=== PATIENT | male | born 1975 | race Caucasian/White ===

== ENCOUNTER → 2017-01-22 17:29 | Emergency (ER) | payer BC ==
[~2017-01-22 17:29] MED LIST: Cephalexin CAP* 500 MG PO ONE; Ibuprofen TAB* 600 MG PO ONE; Sulfamethox/Trimethoprim DS 800/160* TAB PO ONE
--- NOTE | 2017-01-22 20:22 | ED ---
Skin Complaint - HPI Summary HPI Summary: 41 male presents with complaints of an abscess on the back of his left thigh that began 2 days ago. Patient and state he gets "pimples" that need to be popped often and sometimes get infected. states she popped and drained it yesterday and yellow pus came out. Since then the area has become very red and painful to touch without discharge or bleeding. Patient has not taken any medications. He admits to being immuno-compromised since he just finished chemo for his colon cancer ~8 months ago. Admits to feeling feverish however denies fever when taking his temp. Also states he has felt "under the weather" since yesterday. Denies any recent bug bites or skin complaints. Denies pruritis. No other pain or injuries elsewhere. PMHx significant or colon cancer and anemia. No history of MRSA. No loss of ROM. 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: - "popping" draining it Associated Signs & Symptoms: Rash - redness, Drainage, Red Streaks - Additional Pertinent History Primary Care Physician: NISSA - Allergy/Home Medications Allergies/Adverse Reactions: Allergies Allergy/AdvReac Type Severity Reaction Status Date / Time No Known Allergies Allergy Verified 12/05/15 09:19 PMH/Surg Hx/FS Hx/Imm Hx Endocrine/Hematology History: Reports: Hx Anemia - HX OF Denies: Hx Diabetes GI History: Reports: Hx Hiatal Hernia - x2 Sensory History: Denies: Hx Contacts or Glasses, Hx Hearing Aid Opthamlomology History: Denies: Hx Contacts or Glasses Neurological History: Reports: Hx Headaches - Cancer History Cancer Type, Location and Year: colon cancer- in remission ~ 8 months Hx Chemotherapy: Yes - finished 8 months ago - Surgical History Surgery Procedure, Year, and Place: 2 hernia repairs Hx Anesthesia Reactions: No - Immunization History Immunizations Up to Date: Yes Infectious Disease History: No Infectious Disease History: Denies: History Other Infectious Disease, Traveled Outside the [place] in Last 30 Days - Family History Known Family History: Positive: None - Social History Alcohol Use: None Substance Use Type: Reports: None Substance Use Comment - Amount & Last Used: LAST USE 1 MO AGO Smoking Status (MU): Heavy Every Day Tobacco Smoker Type: Cigarettes Amount Used/How Often: 10 cig./day Length of Time of Smoking/Using Tobacco: Since he was 16 years old Have You Smoked in the Last Year: Yes Review of Systems Positive: Fever - feels feverish Cardiovascular: Negative Respiratory: Negative Musculoskeletal: Negative Positive: Rash All Other Systems Reviewed And Are Negative: Yes Physical Exam Triage Information Reviewed: Yes Vital Signs On Initial Exam: Initial Vitals Temp Pulse Resp BP Pulse Ox 98.6 F 121 20 120/61 96 01/22/17 17:35 01/22/17 17:35 01/22/17 17:35 01/22/17 17:35 01/22/17 17:35 tachycardia noed Vital Signs Reviewed: Yes Appearance: Positive: Well-Appearing, Well-Nourished, Pain Distress - moderate when touching abscessed area Skin: Positive: Warm, Skin Color Reflects Adequate Perfusion, Dry, Erythema @ - on posterior mid left thigh- appeared to have been an abscess however at this time no palpable abscess sac. Area around center is firm but non-fluctuant and about the size of a thu. surrounding cellulitis approximatel 4.5cm in daimete with some minor red streaking from surrounding cellulitis to inner thigh. No discharge or bleeding. Indurated. No FB. No longer drainable. Warm to touch. Rest of skin exam normal.. Negative: Cold, Numb, Soft, Cyanosis @ Head/Face: Positive: Normal Head/Face Inspection ENT: Positive: Normal ENT inspection, Hearing grossly normal Neck: Positive: Supple, Nontender, No Lymphadenopathy Respiratory/Lung Sounds: Positive: Clear to Auscultation, Breath Sounds Present. Negative: Rales, Rhonchi, Wheezes Cardiovascular: Positive: Normal, RRR, Pulses are Symmetrical in both Upper and Lower Extremities. Negative: Murmur, Rub Abdomen Description: Positive: Nontender Bowel Sounds: Positive: Present Musculoskeletal: Positive: Normal, Strength/ROM Intact, Pain @ - posterior thigh - superficial skin on palpation due to abscess/cellulitis. Negative: Limited @ , Interruption @ Neurological: Positive: Normal, Sensory/Motor Intact, Alert, Oriented to Person Place, Time, CN Intact II-III, Reflexes Intact, NV Bundle Intact Distally, Normal Gait Psychiatric: Positive: Affect/Mood Appropriate AVPU Assessment: Alert Diagnostics - Vital Signs Vital Signs Temp Pulse Resp BP Pulse Ox 01/22/17 17:37 98.6 F 117 20 120/71 97 01/22/17 17:35 98.6 F 121 20 120/61 96 - Laboratory Result Diagrams: 01/22/17 19:25 01/22/17 19:25 Lab Statement: Any lab studies that have been ordered have been reviewed, and results considered in the medical decision making process. Re-Evaluation - Re-Evaluation First Eval Re-Evaluation Time: 20:15 Change: Unchanged - patient was still comfortable, sleeping no changes, aware that we are waiting for lab results Course/Dx - Course Course Of Treatment: CBC and CMP and lactic ordered to rule out sepsis due to patient being immunocompromised and rapid progression of cellulitis with red streaks. Labs were in normal range. Due to PE findings and patient already draining abscess, no further draining or I&D appeared necessary at this time. Non-fluctuant and very firm without a palpable abscess sac. No drainage to obtain wound culture. No fever or WBC, no concern for sepsis. Given ibuprofen for pain and inflammation. Keflex and Bactrim and follow up. Fluids, keep clean and dry. Aware of worsening signs and symptoms to watch out for and to return if occur, immediately. If oral antibotics show no improvement or symptoms worsening in 48 hours to return promptly. - Differential Diagnoses - Skin Complaint Differential Diagnoses: Abscess, Cellulitis, Contact Dermatitis, Local Allergic Reaction, Tinea, Urticaria, Varicella Zoster, Other - Diagnoses Provider Diagnoses: Cellulitis and abscess of leg Discharge - Discharge Plan Condition: Stable Disposition: HOME Prescriptions: Cephalexin CAP* [Keflex CAP*] 500 mg PO TID #29 cap Sulfamethox/Trimethoprim DS* [Bactrim DS 800/160 TAB*] 1 tab PO BID #19 tab Patient Education Materials: Cellulitis (ED), Abscess (ED) Referrals: No Primary Care Phys,NOPCP [Primary Care Provider] - [facility] – [place] PHYSICIAN REFERRAL [Outside] Additional Instructions: Take antibiotics as directed. Do not skip a dose and continue taking even if symptoms improve, until entire dose is finished. Give mediation ~24-48 hours to work or show improvement. Drink plenty of fluids. Keep clean and dry. Apply warm compresses to area. Follow up with PCP within the next 3-5 days or follow up in ED to re-check. Return sooner if worsening, more red streaking, no improvement or new symptoms such as fever develop.
[2017-01-22 20:39] LABS: Hematocrit 43 % (42-52); Hemoglobin 14.9 g/dl (14.0-18.0); Mean Corpuscular HGB Conc 35 g/dl (31-36); Mean Corpuscular Hemoglobin 33 pg (27-31); Mean Corpuscular Volume 93 fL (80-94); Mean Platelet Volume 8 um3 (7.4-10.4); Red Blood Count 4.58 10^6/ul (4.0-5.4); Red Cell Distribution Width 13 % (10.5-15); White Blood Count 5.9 10^3/ul (3.5-10.8)
[2017-01-22 20:52] LABS: BUN/Creatinine Ratio 10.3 (8-20); Calcium 9.8 mg/dL (8.6-10.3); EGFR African American 89.2 (>60); EGFR Non-African American 69.4 (>60); Globulin 3.1 g/dL (2-4); Potassium 3.9 mmol/L (3.5-5.0); Total Bilirubin 0.5 mg/dL (0.2-1.0); Total Protein 7.1 g/dL (6.4-8.9)
[2017-01-22 21:17] VITALS: BP 119/62
== END | disposition home or self-care (01) ==
LOC: ED 17:29
DX: L03.116 Cellulitis of left lower limb (principal); L02.212 Cutaneous abscess of back [any part, except buttock and flank]; F17.210 Nicotine dependence, cigarettes, uncomplicated
CPT/HCPCS: 36415; 80053; 85025; 99282; A9270-GY

== ENCOUNTER 2017-03-23 09:40 | Emergency (ER) | payer BC ==
[2017-03-23 09:47] VITALS: BP 141/80
--- NOTE | 2017-03-23 10:16 | RAD ---
HISTORY: Left knee swelling COMPARISONS: None VIEWS: 4, Frontal, lateral, axial, and oblique views of the left knee FINDINGS: BONE DENSITY: Normal. BONES: There is no displaced fracture. JOINTS: There is no arthropathy. There is no suprapatellar joint effusion or lipohemarthrosis. ALIGNMENT: There is no dislocation. SOFT TISSUES: There is mild prepatellar soft tissue swelling OTHER FINDINGS: None. IMPRESSION: SOFT TISSUE SWELLING. NO ACUTE OSSEOUS INJURY. IF SYMPTOMS PERSIST, RECOMMEND REPEAT IMAGING.
--- NOTE | 2017-03-23 11:14 | RAD ---
INDICATION: Left hip pain, "had infected abscess" COMPARISON: CT abdomen pelvis November 05, 2015 TECHNIQUE: 4 views of the left hip were obtained. FINDINGS: The visualized bones of the left hip are well-corticated and properly aligned. The joint spaces are normal. There is no radiographic evidence of acute fracture or dislocation. IMPRESSION: Normal radiograph of the left hip. If the patient's symptoms persist follow-up imaging is recommended.
--- NOTE | 2017-03-23 11:33 | RAD ---
HISTORY: Left leg swelling COMPARISONS: None relevant TECHNIQUE: Multiple transverse and longitudinal ultrasound images were obtained of the left lower extremity from the level of the common femoral vein inferiorly through to the infrapopliteal veins using grayscale, color Doppler, and spectral Doppler imaging with and without compression and with augmentation. Comparison images were obtained of the contralateral common femoral vein. FINDINGS: VEINS: The venous system of the left lower extremity is compressible throughout its course, with normal flow on color Doppler imaging and normal response to augmentation on spectral Doppler imaging. SOFT TISSUES: Unremarkable. OTHER FINDINGS: None. IMPRESSION: NO LEFT LOWER EXTREMITY DEEP VEIN THROMBOSIS
--- NOTE | 2017-03-23 12:17 | UC ---
Coy Chan Alfonso, scribed for Serjio Shepard MD on 03/23/17 at 1044 . Lower Extremity/Ankle HPI - HPI Summary HPI Summary: This patient is a 41 year old M presenting to [facility] with a chief complaint of left knee pain worse since two days ago. The CC is described as swelling and aching. The patient rates the pain 10/10 in severity. Symptoms aggravated by ambulation. Symptoms alleviated by nothing. Patient reports left hip pain. Patient denies fever, chills, CP, SOB, and back pain. He was seen at [facility] two months ago for cellulitis and abscess of the left leg. He works in [employer]. He denies taking blood thinning medication. He denies known trauma. He denies known tick bites but he is outdoors often. PMHx of colon cancer for which he completed chemotherapy approximately 9 months ago, and peripheral neuropathy in both feet. Patients medications reviewed this visit. - History of Current Complaint Chief Complaint: UCLowerExtremity Stated Complaint: LEG PAIN Time Seen by Provider: 03/23/17 10:19 Hx Obtained From: Patient Onset/Duration: Sudden Onset, Lasting Weeks - Intermittent since 2 months ago cellulitis and abscess, Worse Since - 2 days Severity Initially: Severe Severity Currently: Severe Pain Intensity: 10 Pain Scale Used: 0-10 Numeric Aggravating Factor(s): Ambulation Alleviating Factor(s): Nothing Able to Bear Weight: Yes - Allergies/Home Medications Allergies/Adverse Reactions: Allergies Allergy/AdvReac Type Severity Reaction Status Date / Time No Known Allergies Allergy Verified 03/23/17 09:47 Home Medications: Home Medications Gabapentin CAP(*) [Neurontin 300 CAP(*)] 300 mg PO BID 03/23/17 [History Confirmed 03/23/17] PMH/Surg Hx/FS Hx/Imm Hx Previously Healthy: No Other Neurological History: peripheral neuropathy in both feet Cancer History: Colorectal Cancer - Surgical History Surgical History: Yes Surgery Procedure, Year, and Place: 2 hernia repairs - Family History Known Family History: Positive: Diabetes, Other - Cancer Negative: Cardiac Disease - Social History Alcohol Use: None Substance Use Type: None Substance Use Comment - Amount & Last Used: LAST USE 1 MO AGO Smoking Status (MU): Former Smoker Type: Cigarettes Amount Used/How Often: 10 cig./day Length of Time of Smoking/Using Tobacco: Since he was 16 years old Have You Smoked in the Last Year: Yes When Did the Patient Quit Smoking/Using Tobacco: 11/05/2015 Household Exposure Type: Cigarettes - Immunization History Most Recent Influenza Vaccination: NEVER Most Recent Tetanus Shot: 2 years ago Most Recent Pneumonia Vaccination: never Review of Systems Constitutional: Negative Respiratory: Other - Negative SOB Cardiovascular: Other - Negative CP Musculoskeletal: Other: - Left knee and left hip pain; negative back pain. All Other Systems Reviewed And Are Negative: Yes Physical Exam Triage Information Reviewed: Yes Vital Signs: Initial Vital Signs Temp 98.6 F 03/23/17 09:42 Pulse 86 03/23/17 09:42 Resp 16 03/23/17 09:42 BP 141/80 03/23/17 09:42 Pulse Ox 97 03/23/17 09:42 Vital Signs Reviewed: Yes - Additional Comments The patient is well-nourished in no acute distress and in no acute pain. The skin is warm and dry and skin color reflects adequate perfusion. HEENT: The head is normocephalic and atraumatic. The pupils are equal and reactive. The conjunctivae are clear and without drainage. Nares are patent and without drainage. Mouth reveals moist mucous membranes and the throat is without erythema and exudate. The external ears are intact. The ear canals are patent and without drainage. The tympanic membranes are intact. Neck is supple with full range of motion and non-tender. There are no carotid bruits. There is no neck vein distension. Respiratory: Chest is non-tender. Lungs are clear to auscultation and breath sounds are symmetrical and equal. Cardiovascular: Heart is regular rate and rhythm. There is no murmur or rub auscultated. Pulses are symmetrical and equal. Abdomen: The abdomen is soft and non-tender. Musculoskeletal: There is no back pain noted. There is good capillary refill. There is no peripheral edema or calf tenderness elicited. Swelling of left knee and ankle. Good distal pulses at LLE. Decreased LLE knee flection to 45 degrees. LLE knee has full extension. Lateral aspect of left knee tender. Left knee warm but not hot. Questionable patellar ballottement. Reproducible left hip pain. Left hip has slight edema compared to right. Neurological: Patient is alert and oriented to person, place and time. The patient has symmetrical motor strength in all four extremities. Cranial nerves are grossly intact. Psychiatric: The patient has an appropriate affect. Diagnostics - Laboratory Diagnostic Studies Completed/Ordered: Knee X-Ray reveals, per radiologist, SOFT TISSUE SWELLING. NO ACUTE OSSEOUS INJURY. IF SYMPTOMS PERSIST, RECOMMEND REPEAT IMAGING. [facility] physician has reviewed this radiology report and agrees. Hip/ Pelvis X-Ray reveals, per radiologist, Normal radiograph of the left hip. If the patient's symptoms persist follow-up imaging is recommended. [facility] physician has reviewed this radiology report and agrees. Venous Doppler Study reveals, per radiologist, NO LEFT LOWER EXTREMITY DEEP VEIN THROMBOSIS. [facility] physician has reviewed this radiology report and agrees. Lower Extremity Course/Dx - Course Course Of Treatment: This patient is a 41 year old M presenting to [facility] with a chief complaint of left knee pain worse since two days ago. The CC is described as swelling and aching. The patient rates the pain 10/10 in severity. Symptoms aggravated by ambulation. Symptoms alleviated by nothing. Patient reports left hip pain. Patient denies fever, chills, CP, SOB, and back pain. He was seen at [facility] two months ago for cellulitis and abscess of the left leg. He works in [employer]. He denies taking blood thinning medication. He denies known trauma. He denies known tick bites but he is outdoors often. PMHx of colon cancer for which he completed chemotherapy approximately 9 months ago, and peripheral neuropathy in both feet. Patients medications reviewed this visit. Knee X-Ray reveals, per radiologist, SOFT TISSUE SWELLING. NO ACUTE OSSEOUS INJURY. IF SYMPTOMS PERSIST, RECOMMEND REPEAT IMAGING. [facility] physician has reviewed this radiology report and agrees. Hip/Pelvis X-Ray reveals, per radiologist, Normal radiograph of the left hip. If the patient's symptoms persist follow-up imaging is recommended. [facility] physician has reviewed this radiology report and agrees. Venous Doppler Study reveals, per radiologist, NO LEFT LOWER EXTREMITY DEEP VEIN THROMBOSIS. [facility] physician has reviewed this radiology report and agrees. Pt instructed to FOLLOW UP WITH PRIMARY CARE PROVIDER IN TWO WEEKS FOR HIGH BLOOD PRESSURE NOTED TODAY AT 141/80. Patient will be discharged with follow up from PCP and Orthopedics. The patient is agreeable with this plan. - Differential Dx/Diagnosis Differential Diagnosis/HQI/PQRI: Arthritis, DVT, Fracture (Closed), Other - internal derrangement left knee, patella bursitis Provider Diagnoses: Left leg pain. Discharge - Discharge Plan Condition: Stable Disposition: HOME Patient Education Materials: Leg Pain (ED) Forms: *Work Release Referrals: Keenan Gilliam MD [Medical Doctor] - 1 Week [facility] – [place] PHYSICIAN REFERRAL [Outside] - 1 Week Additional Instructions: FOLLOW UP WITH YOUR PRIMARY CARE PROVIDER IN TWO WEEKS FOR HIGH BLOOD PRESSURE NOTED TODAY AT 141/80. THIS DOES NOT MEAN YOU HAVE HYPERTENSION. The documentation as recorded by the Coy petit Alfonso accurately reflects the service I personally performed and the decisions made by me, Serjio Shepard MD.
== END 2017-03-23 11:50 | disposition home or self-care (01) ==
LOC: UCEAST 09:40
DX: M25.562 Pain in left knee (principal); M25.552 Pain in left hip; R60.0 Localized edema; G62.9 Polyneuropathy, unspecified; Z85.038 Personal history of other malignant neoplasm of large intestine; Z87.891 Personal history of nicotine dependence
CPT/HCPCS: 99212; G0463

== ENCOUNTER 2017-03-23 13:00 | Emergency (ER) | payer BC ==
[2017-03-23 15:12] VITALS: BP 129/69
--- NOTE | 2017-03-23 16:49 | ED ---
Lower Extremity - HPI Summary HPI Summary: Patient presents to the ED with CC of left lower leg pain which is worse in the knee. He was seen at and had an US, xray of the leg including the hip. He was encouraged to follow up at his PCP office after provider did not find anything on images or PE. He is here for a second opinion. Pain has been present for about 1 month, but has worsened over this week with pain and fluid around the knee. He has been taking 800mg ibuprofen without relief. He notes to swelling in the knee, but denies warmth or erythema. He endorses abscess on the ipsilateral leg x1 month ago, placed on abx and had good effect with essential clearing of the abscess. He notes to "pain all throughout the leg" since that time. Denies history of gout, rashes, known tick bite, ORTIZ, neuro symptoms or weakness. - History of Current Complaint Chief Complaint: EDExtremityLower Stated Complaint: LT LEG PAIN Time Seen by Provider: 03/23/17 14:08 Hx Obtained From: Patient Mechanism Of Injury: Unknown Onset of Pain: Days Onset/Duration: Weeks Severity Initially: Moderate Severity Currently: Moderate Pain Intensity: 10 Pain Scale Used: 0-10 Numeric Timing: Constant Location: Is Discrete @ - left knee and radiates throughout the entire left leg Associated Signs And Symptoms: Positive: Swelling, Weakness, Knee Pain. Negative: Redness, Bruising, Fever, Abdominal Pain Aggravating Factor(s): Standing, Ambulation, Movement Alleviating Factor(s): Rest, Elevation Able to Bear Weight: Yes - Risk Factors Gout Risk Factors: Age Over 40, Male DVT Risk Factors: Negative Septic Arthritis Risk Factor: Negative - Allergies/Home Medications Allergies/Adverse Reactions: Allergies Allergy/AdvReac Type Severity Reaction Status Date / Time No Known Allergies Allergy Verified 03/23/17 09:47 PMH/Surg Hx/FS Hx/Imm Hx Previously Healthy: Yes Endocrine/Hematology History: Reports: Hx Anemia - HX OF Denies: Hx Diabetes GI History: Reports: Hx Hiatal Hernia - x2 Sensory History: Denies: Hx Contacts or Glasses, Hx Hearing Aid Opthamlomology History: Denies: Hx Contacts or Glasses Neurological History: Reports: Hx Headaches - Cancer History Cancer Type, Location and Year: colon cancer- in remission ~ 8 months Hx Chemotherapy: Yes - finished 8 months ago - Surgical History Surgery Procedure, Year, and Place: 2 hernia repairs Hx Anesthesia Reactions: No - Immunization History Hx Pertussis Vaccination: No Immunizations Up to Date: Unable to Obtain/Confirm Infectious Disease History: No Infectious Disease History: Denies: History Other Infectious Disease, Traveled Outside the [place] in Last 30 Days - Family History Known Family History: Positive: None, Diabetes, Other - Cancer Negative: Cardiac Disease - Social History Occupation: Employed Full-time Lives: With Family Alcohol Use: None Hx Substance Use: No Substance Use Type: Reports: None Substance Use Comment - Amount & Last Used: LAST USE 1 MO AGO Hx Tobacco Use: Yes Smoking Status (MU): Former Smoker Type: Cigarettes Amount Used/How Often: 10 cig./day Length of Time of Smoking/Using Tobacco: Since he was 16 years old Have You Smoked in the Last Year: Yes Review of Systems Constitutional: Negative Negative: Fever, Chills, Fatigue Eyes: Negative Cardiovascular: Negative Respiratory: Negative Genitourinary: Negative Positive: no symptoms reported, see HPI Positive: Arthralgia - knee pain , Other - knee effusion Skin: Negative Neurological: Negative All Other Systems Reviewed And Are Negative: Yes Physical Exam Triage Information Reviewed: Yes Vital Signs On Initial Exam: Initial Vitals Temp Pulse Resp BP Pulse Ox 98.9 F 91 18 134/71 96 03/23/17 13:37 03/23/17 13:37 03/23/17 13:37 03/23/17 13:37 03/23/17 13:37 Vital Signs Reviewed: Yes Appearance: Positive: Well-Appearing, Well-Nourished Skin: Positive: Warm, Skin Color Reflects Adequate Perfusion Head/Face: Positive: Normal Head/Face Inspection Eyes: Positive: EOMI, VASU, Conjunctiva Clear Neck: Positive: Supple, Nontender, No Lymphadenopathy Respiratory/Lung Sounds: Positive: Clear to Auscultation, Breath Sounds Present Cardiovascular: Positive: Normal, RRR, Pulses are Symmetrical in both Upper and Lower Extremities Musculoskeletal: Positive: Strength/ROM Intact, Pain @ - left knee with small effusion on physical exam. Negative: Anabel Sign Left, Anabel Sign Right, Edema Left, Edema Right Neurological: Positive: Speech Normal Psychiatric: Positive: Normal AVPU Assessment: Alert Diagnostics - Vital Signs Vital Signs Temp Pulse Resp BP Pulse Ox 03/23/17 15:05 99.6 F 90 16 129/69 97 03/23/17 15:04 98.9 F 91 18 134/71 98 03/23/17 13:37 98.9 F 91 18 134/71 96 - Laboratory Lab Statement: Any lab studies that have been ordered have been reviewed, and results considered in the medical decision making process. Lower Extremity Course/Dx - Course Course Of Treatment: Patient evaluated at . Xrays and US negative for any findings. Knee effusion noted on physical exam. Explained to the patient, they will likely need further imaging of the knee if the pain worsens, but this would not be an emergent situation. Evaluated for possible tick bite, referrred pain from previous asbcess causing peripheral nerve pain, but he states he has this at baseline. He also is on gabapentin at baseline. Agreed to provide a lyme serology, but no rash noted and joint pain remains unilateral. Will not start a abx at this time. Treatment options explained to patient and he agrees he should follow up and is OK to defer at this time. - Diagnoses Differential Diagnosis/HQI/PQRI: Positive: Gout, Infection, Osteomyelitis, Strain Provider Diagnoses: Knee effusion, left Discharge - Discharge Plan Condition: Stable Disposition: HOME Patient Education Materials: Knee Pain (ED), Leg Pain (ED) Referrals: No Primary Care Phys,NOPCP [Primary Care Provider] - Additional Instructions: Follow up with PCP in 1-2 weeks Will call with results of Lyme test if positive. Follow up with Dr. Gillima - you have a referral from Dr. Shepard
[2017-03-25 13:18] LABS: Lyme Disease IgG Ab WB Positive (Negative)
== END 2017-03-23 15:46 | disposition home or self-care (01) ==
LOC: ED 13:00
DX: M25.462 Effusion, left knee (principal); Z85.038 Personal history of other malignant neoplasm of large intestine; Z87.891 Personal history of nicotine dependence
CPT/HCPCS: 86617; 86618